=== PATIENT | female | born 1935 | race African-American/Black ===

== ENCOUNTER 2022-08-12 15:54 | Inpatient (IN) | payer MEDICARE, MEDICAID ==
[~2022-08-12] VITALS: Ht 167.6 cm; Wt 68.7 kg
[~2022-08-12 15:54] MED LIST: ALBU18HF2 IH; ALCA3DRO EACHEYE; APIX5TAB MT; ASPI-1497 PO; AZEL137S7 BOTHNSTRLS; BUDE6HFA INH; CETI10CA2 MT; CLON0.2T PO; CYCL30DR EACHEYE; DICL100G31 TP; EZET10TA13 PO; FLUT9.9S16 BOTHNSTRLS; LIP40 MT; OMEP40CA20 PO; TIZA4CAP6 MT; TIZA4CAP6 PO; TRIA1TAB92 PO; ZAFI20TA13 MT
[2022-08-13] MEDS ORDERED: DICYCLOMINE 10 MG/5 ML ORAL SYR PO ONE
[2022-08-13 01:05] LABS: HEMATOCRIT. 35.3 % (36.0-48.0); HEMOGLOBIN. 11.6 g/dL (12.0-16.0); MEAN CORPUSCULAR HEMOGLOBIN 25.9 pg (28.0-32.0); MEAN CORPUSCULAR VOLUME 78.8 fL (81.0-99.0); MEAN PLATELET VOLUME 8.8 fl (7.4-10.4); PLATELET 167 x1000/uL (130-400); RED BLOOD CELL COUNT 4.48 mill/uL (4.2-5.4)
[2022-08-13 01:08] LABS: CHLORIDE 104 mEq/L (98-107)
[2022-08-13 03:35] LABS: PLATELET ESTIMATE NORMAL
[2022-08-13] MEDS ORDERED: ACETAMINOPHEN 325MG TABLET PO STA (04:32)
[2022-08-13] MEDS ORDERED: VANCOMYCIN 1G PREMIX 200 ML IV ONE (04:45)
[2022-08-13] MEDS ORDERED: SODIUM CHLORIDE 0.9% 1,000 ML IV ONE (04:45)
[2022-08-13] MEDS ORDERED: PIPERACILLIN/TAZ 3.375G PREMIX 50 ML IV ONE (04:45)
[2022-08-13] MEDS ORDERED: DICYCLOMINE 10 MG/5 ML ORAL SYR PO NR (06:15)
[2022-08-13 06:45] LABS: CLARITY URINE CLOUDY (CLEAR); COLOR URINE YELLOW (YELLOW); KETONES URINE TRACE (NEGATIVE); LEUKOCYTE ESTERASE URINE 3+ (NEGATIVE); NITRITE URINE NEGATIVE (NEGATIVE); OCCULT BLOOD URINE 2+ (NEGATIVE); PH URINE 5.5 (4.5-8.0); PROTEIN URINE 1+ (NEGATIVE); SPECIFIC GRAVITY URINE 1.012 (1.005-1.030); UROBILINOGEN URINE 0.2 E.U./dL (0.2-1.0)
[2022-08-13 08:25] VITALS: BP 116/56
[2022-08-13] MEDS ORDERED: FURO-151 MT (09:11)
[2022-08-13] MEDS ORDERED: MINO2.5T2 MT (09:11)
[2022-08-13] MEDS ORDERED: POTA-79 MT (09:11)
[2022-08-13] MEDS ORDERED: ALBUTEROL (0.083%) 2.5MG/3ML NEB INH PRN (10:15)
[2022-08-13] MEDS ORDERED: HYDROCODONE/ACETAMINOPHEN 5/325MG TABLET PO PRN ×2 (10:30→17:15)
[2022-08-13] MEDS ORDERED: ACETAMINOPHEN 325MG TABLET PO PRN (10:30)
[2022-08-13 12:00] VITALS: BP 131/57
[2022-08-13] MEDS ORDERED: LEVOFLOXACIN 500MG PREMIX 100 ML IV NR (12:00)
[2022-08-13 16:00] VITALS: BP 120/47
[2022-08-13] MEDS: MINOXIDIL 2.5MG TABLET PO SCH (16:35)
[2022-08-13] MEDS: APIXABAN 5 MG TABLET PO SCH (16:35)
[2022-08-13] MEDS: FUROSEMIDE 40MG/4ML VIAL IVP SCH (16:36)
[2022-08-13] MEDS ORDERED: MEDICATION NOT ON FORMULARY EA (Cyclosporine (Restasis) 1 DROP) EACHEYE SCH (17:00)
[2022-08-13] MEDS ORDERED: MEDICATION NOT ON FORMULARY EA (Budesonide/Formoterol Fumarate (Symbicort 160/4.5 Mcg In INH SCH (17:00)
[2022-08-13] MEDS ORDERED: MAGNESIUM/ALUMINUM HYDROXIDE/SIMETHICONE 30ML UDC PO PRN (17:15)
[2022-08-13] MEDS ORDERED: CLONIDINE 0.1MG TABLET PO PRN (17:15)
[2022-08-13] MEDS ORDERED: NALOXONE HCL 0.4MG/ML VIAL IV PRN (17:30)
[2022-08-13] MEDS: SODIUM CHLORIDE 0.9% 1,000 ML IV SCH (17:53)
[2022-08-13] MEDS ORDERED: *PATIENT'S OWN MEDICATION STORAGE XX SCH (19:00)
[2022-08-13] MEDS ORDERED: ONDANSETRON HCL 4MG/2ML INJ IV PRN (19:45)
[2022-08-13 20:00] VITALS: BP 137/59
[2022-08-13] MEDS: EZETIMIBE 10MG TABLET PO SCH (20:53)
[2022-08-14] VITALS: BP 112/44
[2022-08-14 04:00] VITALS: BP 103/49
[2022-08-14 07:20] LABS: BASOPHILS % 0.4 % (0.0-2.0); EOSINOPHILS % 1.2 % (0.0-5.0); HEMOGLOBIN. 9.8 g/dL (12.0-16.0); MEAN CORPUSCULAR HEMOGLOBIN 25.8 pg (28.0-32.0); MEAN CORPUSCULAR VOLUME 78.7 fL (81.0-99.0); MEAN PLATELET VOLUME 9.3 fl (7.4-10.4); MONOCYTES % 6.4 % (2.0-8.0); PLATELET 126 x1000/uL (130-400); RED CELL DISTRIBUTION WIDTH 15.7 % (11.6-14.6)
[2022-08-14 08:00] VITALS: BP 126/58
[2022-08-14 08:06] LABS: T4 FREE 1.17 ng/dL (0.76-1.46)
[2022-08-14] MEDS ORDERED: ALCAFTADINE EACHEYE SCH (09:00)
[2022-08-14] MEDS: CETIRIZINE 10MG TABLET PO SCH (09:18)
[2022-08-14] MEDS: OMEPRAZOLE 20MG CAPSULE EXTENDED RELEASE PO SCH (09:18)
[2022-08-14] MEDS: MINOXIDIL 2.5MG TABLET PO SCH ×2 (09:19→16:03)
[2022-08-14] MEDS: APIXABAN 5 MG TABLET PO SCH ×2 (09:19→16:02)
[2022-08-14] MEDS: FUROSEMIDE 40MG/4ML VIAL IVP SCH ×2 (09:20→16:03)
[2022-08-14] MEDS: POTASSIUM CHLORIDE 20MEQ TABLET SR PO SCH (09:20)
[2022-08-14] MEDS: ASPIRIN 81MG EC TABLET PO SCH (09:23)
[2022-08-14] MEDS: FLUTICASONE PROPIONATE 50MCG/SPRAY BOTTLE BOTHNSTRLS SCH (09:47)
[2022-08-14 12:00] VITALS: BP 119/47
[2022-08-14] MEDS ORDERED: LEVOFLOXACIN 500MG PREMIX 100 ML IV SCH (14:00)
[2022-08-14] MEDS: LEVOFLOXACIN 250MG PREMIX 50 ML IV SCH (15:17)
[2022-08-14 16:00] VITALS: BP 126/51
[2022-08-14] MEDS: SODIUM CHLORIDE 0.9% 1,000 ML IV SCH (16:19)
[2022-08-14] MEDS: ALBUTEROL (0.083%) 2.5MG/3ML NEB HHN SCH ×2 (16:26→20:01)
[2022-08-14 20:00] VITALS: BP 110/45
[2022-08-14] MEDS: BUDESONIDE 0.5MG/2ML NEB HHN SCH (20:04)
[2022-08-14] MEDS: EZETIMIBE 10MG TABLET PO SCH (20:51)
[2022-08-15] VITALS: BP 105/50
[2022-08-15] MEDS: ALBUTEROL (0.083%) 2.5MG/3ML NEB HHN SCH ×4 (00:46→14:19)
[2022-08-15 04:00] VITALS: BP 132/57
[2022-08-15 06:41] LABS: BASOPHILS % 0.3 % (0.0-2.0); EOSINOPHILS % 1.4 % (0.0-5.0); HEMATOCRIT. 31.3 % (36.0-48.0); HEMOGLOBIN. 10.2 g/dL (12.0-16.0); LYMPHOCYTES % 17.6 % (20.0-50.0); MEAN CORPUSCULAR HEMOGLOBIN 25.9 pg (28.0-32.0); MEAN CORPUSCULAR VOLUME 79.2 fL (81.0-99.0); MEAN PLATELET VOLUME 9.4 fl (7.4-10.4); MONOCYTES % 12.1 % (2.0-8.0); NEUTROPHILS % 68.6 % (40.0-76.0); PLATELET 141 x1000/uL (130-400); RED BLOOD CELL COUNT 3.95 mill/uL (4.2-5.4); RED CELL DISTRIBUTION WIDTH 15.9 % (11.6-14.6)
[2022-08-15] MEDS: BUDESONIDE 0.5MG/2ML NEB HHN SCH (07:51)
[2022-08-15 08:00] VITALS: BP 135/61
[2022-08-15] MEDS: OMEPRAZOLE 20MG CAPSULE EXTENDED RELEASE PO SCH (08:52)
[2022-08-15] MEDS: CETIRIZINE 10MG TABLET PO SCH (08:52)
[2022-08-15] MEDS: POTASSIUM CHLORIDE 20MEQ TABLET SR PO SCH (08:52)
[2022-08-15] MEDS: ASPIRIN 81MG EC TABLET PO SCH (08:52)
[2022-08-15] MEDS: FUROSEMIDE 40MG/4ML VIAL IVP SCH (08:52)
[2022-08-15] MEDS: APIXABAN 5 MG TABLET PO SCH ×2 (08:52→16:51)
[2022-08-15] MEDS: MINOXIDIL 2.5MG TABLET PO SCH ×2 (08:52→16:52)
[2022-08-15] MEDS: FLUTICASONE PROPIONATE 50MCG/SPRAY BOTTLE BOTHNSTRLS SCH (08:53)
[2022-08-15] MEDS ORDERED: AMLODIPINE 2.5MG TABLET PO NR (10:30)
[2022-08-15 12:00] VITALS: BP 121/70
[2022-08-15] MEDS ORDERED: POTASSIUM CHLORIDE 20MEQ TABLET SR PO SCH (12:15)
[2022-08-15] MEDS ORDERED: LEVO500T90 MT (15:07)
[2022-08-15] MEDS: LEVOFLOXACIN 250MG PREMIX 50 ML IV SCH (15:45)
[2022-08-15 18:09] VITALS: BP 139/72
[2022-08-15] MEDS ORDERED: ATORVASTATIN CALCIUM 40MG TABLET PO SCH (21:00)
[2022-08-16] MEDS ORDERED: AMLODIPINE 2.5MG TABLET PO SCH (09:00)
== END 2022-08-15 18:40 | disposition home health service (06) | DRG 871 ==
LOC: ER 15:54 → 8WST 08-13 03:33 → EDBEDREQ 08-13 03:37 → EDBEDREQTM 08-13 03:37 → ENRESERV 08-13 07:56
PROVIDERS: ADMIT Internal Medicine; ATTEND Internal Medicine
DX: A41.9 Sepsis, unspecified organism (principal); I50.33 Acute on chronic diastolic (congestive) heart failure; N39.0 Urinary tract infection, site not specified; E87.2 Acidosis; J44.0 Chronic obstructive pulmonary disease with (acute) lower respiratory infection; I11.0 Hypertensive heart disease with heart failure; Z20.822 Contact with and (suspected) exposure to COVID-19; E78.5 Hyperlipidemia, unspecified; I48.91 Unspecified atrial fibrillation; D50.9 Iron deficiency anemia, unspecified; B96.89 Other specified bacterial agents as the cause of diseases classified elsewhere; M48.00 Spinal stenosis, site unspecified; K21.9 Gastro-esophageal reflux disease without esophagitis; I25.2 Old myocardial infarction; Z79.01 Long term (current) use of anticoagulants; Z88.2 Allergy status to sulfonamides; Z88.8 Allergy status to other drugs, medicaments and biological substances; Z86.711 Personal history of pulmonary embolism; Z86.718 Personal history of other venous thrombosis and embolism; Z79.899 Other long term (current) drug therapy
CPT/HCPCS: 36415; 71045; 78580; 80048; 80053; 80061; 81003; 83605; 83735; 83880; 84100; 84145; 84439; 84484; 85025; 87077; 87186; 87426; 93005; 93306; 93970; 94640; 97162; 97166; 99285; C1893; J1940; J1956; J2405; J2543; J3370; J7030; J7626